=== PATIENT | male | born 1985 ===

== ENCOUNTER 2019-09-14 09:17 | Emergency (ER) | payer BC, OTHER ==
[~2019-09-14] VITALS: Ht 172.7 cm; Wt 84.0 kg
[2019-09-14 09:19] VITALS: BP 101/36
[2019-09-14] MEDS ORDERED: ACETAMINOPHEN 500 MG TABLET PO ONE (10:00)
[2019-09-14] MEDS ORDERED: ACETAMINOPHEN 500 MG TABLET ONE (10:18)
[2019-09-14] MEDS ORDERED: NEOSPORIN OINT. PKT 1 PACKET ONE (10:19)
== END 2019-09-14 10:36 | disposition home or self-care (01) ==
LOC: ED 09:54
DX: S90.122A Contusion of left lesser toe(s) without damage to nail, initial encounter (principal); R42 Dizziness and giddiness; R55 Syncope and collapse; R00.1 Bradycardia, unspecified; X58.XXXA Exposure to other specified factors, initial encounter; Y93.89 Activity, other specified; Y92.89 Other specified places as the place of occurrence of the external cause; Y99.8 Other external cause status
CPT/HCPCS: 93005; 99283